=== PATIENT | female | born 2000 | race Caucasian/White ===

== ENCOUNTER 2021-05-13 17:42 | Emergency (ER) | payer MEDICAID ==
[~2021-05-13] VITALS: Ht 160 cm; Wt 91.0 kg
[2021-05-13] MEDS ORDERED: ACTIVATED CHARCOAL 50 G/240 ML TUBE NG ONE (18:15)
[2021-05-13 19:27] LABS: BASOPHILS % 0.3 % (0.0-2.0); CLARITY URINE CLOUDY (CLEAR); COLOR URINE DARK YELLOW (YELLOW); EOSINOPHILS % 0.1 % (0.0-5.0); HEMATOCRIT. 35.5 % (36.0-48.0); KETONES URINE TRACE (NEGATIVE); LEUKOCYTE ESTERASE URINE NEGATIVE (NEGATIVE); LYMPHOCYTES % 14.4 % (20.0-50.0); MEAN CORPUSCULAR HEMOGLOBIN 26.5 pg (28.0-32.0); MEAN CORPUSCULAR VOLUME 78.5 fL (81.0-99.0); MEAN PLATELET VOLUME 8.8 fl (7.4-10.4); MONOCYTES % 3.8 % (2.0-8.0); NEUTROPHILS % 81.4 % (40.0-76.0); NITRITE URINE NEGATIVE (NEGATIVE); OCCULT BLOOD URINE 1+ (NEGATIVE); PLATELET 391 x1000/uL (130-400); PROTEIN URINE 2+ (NEGATIVE); RED BLOOD CELL COUNT 4.52 mill/uL (4.2-5.4); RED CELL DISTRIBUTION WIDTH 14.6 % (11.6-14.6); SPECIFIC GRAVITY URINE 1.028 (1.005-1.030); UROBILINOGEN URINE 0.2 E.U./dL (0.2-1.0)
[2021-05-13 19:29] LABS: CHLORIDE 104 mEq/L (98-107)
[2021-05-13 19:33] LABS: ETHANOL BLOOD < 10 mg/dL
[2021-05-13 19:34] LABS: HCG SCREEN NEGATIVE
[2021-05-13 19:37] LABS: *AMPHETAMINES SCREEN URINE NEGATIVE (NEGATIVE); *BARBITURATES SCREEN URINE NEGATIVE (NEGATIVE); *BENZODIAZEPINES SCREEN URINE NEGATIVE (NEGATIVE); *COCAINE SCREEN URINE NEGATIVE (NEGATIVE); METHADONE URINE SCREEN NEGATIVE (NEGATIVE); OPIATES URINE SCREEN NEGATIVE (NEGATIVE)
[2021-05-13 19:38] LABS: PHENCYCLIDINE URINE SCREEN NEGATIVE (NEGATIVE)
[2021-05-13 19:46] LABS: CANNABINOID URINE SCREEN PRESUMTIVE POSITIVE (NEGATIVE)
[2021-05-13] MEDS ORDERED: SODIUM CHLORIDE 0.9% 1,000 ML IV ONE (22:30)
[2021-05-14] MEDS ORDERED: LURA20TA MT (13:02)
[2021-05-14 13:36] VITALS: BP 115/65
== END 2021-05-14 13:52 | disposition home or self-care (01) ==
LOC: ER 17:51
DX: T14.91XA Suicide attempt, initial encounter (principal); T43.211A Poisoning by selective serotonin and norepinephrine reuptake inhibitors, accidental (unintentional), initial encounter; Y92.89 Other specified places as the place of occurrence of the external cause; F32.9 Major depressive disorder, single episode, unspecified; F41.9 Anxiety disorder, unspecified; Z98.890 Other specified postprocedural states
CPT/HCPCS: 36415; 80053; 80305; 80320; 81003; 84703; 85025; 93005; 96360; 96361; 99285; J7030; G0480